=== PATIENT | male | born 1975 | race Two or more races ===

== ENCOUNTER 2022-03-22 18:06 | Emergency (ER) | payer OTHER ==
[~2022-03-22] VITALS: Ht 175.3 cm; Wt 81.6 kg
== END 2022-03-22 21:58 | disposition home or self-care (01) ==
LOC: ER 18:06
DX: U07.1 COVID-19 (principal)

== ENCOUNTER 2022-09-23 11:29 | Emergency (ER) | payer OTHER ==
[~2022-09-23] VITALS: Ht 175.3 cm; Wt 82.6 kg
== END 2022-09-23 13:12 | disposition home or self-care (01) ==
LOC: ER 11:29
DX: S61.411A Laceration without foreign body of right hand, initial encounter (principal); W27.0XXA Contact with workbench tool, initial encounter; Y93.9 Activity, unspecified; Y92.9 Unspecified place or not applicable; Y99.9 Unspecified external cause status

== ENCOUNTER 2022-10-03 17:27 | Emergency (ER) | payer OTHER ==
[~2022-10-03] VITALS: Ht 175.3 cm; Wt 83.9 kg
== END 2022-10-03 18:12 | disposition home or self-care (01) ==
LOC: ER 17:27
DX: Z48.02 Encounter for removal of sutures (principal)